=== PATIENT | male | born 1935 | race Caucasian/White ===

== ENCOUNTER 2017-04-17 12:35 | Inpatient (IN) | payer MEDICARE, OTHER ==
[~2017-04-17] VITALS: Ht 177.8 cm; Wt 63.0 kg
[2017-04-17] MEDS ORDERED: PRESERVISION AREDS 2 PO (13:14)
[2017-04-17] MEDS ORDERED: ATORVASTATIN CA40 MG PO (13:15)
[2017-04-17] MEDS ORDERED: AGGRENOX 200/251 CAP PO (13:15)
[2017-04-17] MEDS ORDERED: ASPIRIN CHEWABL81 MG PO (13:16)
[2017-04-17 13:42] LABS: HEMATOCRIT 39.3 % (39.0-50.0); HEMOGLOBIN 13.1 g/dl (14.0-18.0); IMMATURE GRANULOCYTES 0.4 % (0.0-1.0); MEAN CORPUSCULAR HGB 32.3 pG CALC (26.0-32.0); MEAN CORPUSCULAR HGB CONC 33.3 g/L CALC (32.0-36.0); NEUT# 9.03 thou/uL (1.82-7.42); RED BLOOD COUNT 4.05 mill/uL (4.70-6.10)
[2017-04-17 13:54] LABS: ALBUMIN 3.8 g/dL (3.2-5.0); ALKALINE PHOSPHATASE 120 u/l (38-126); ANION GAP 12 (6-22 (CALC)); BILIRUBIN, TOTAL 0.7 mg/dL (0.0-1.4); BUN 15 mg/dL (8-23); BUN/CREATININE RATIO 17 (12-20 (CALC)); CALCIUM 9.4 mg/dL (8.4-10.2); CARBON DIOXIDE 27 mmol/l (22-30); CHLORIDE 111 mmol/l (95-108); CREATININE 0.9 mg/dL (0.7-1.3); GFR > 60 ML/MIN (>=60 (CALC)); GFR FOR AFR.AMER. > 60 ML/MIN (>=60 (CALC)); GLUCOSE 118 mg/dL (82-115); LIPASE 102 u/l (23-300); POTASSIUM 4.3 mmol/l (3.5-5.1); SGOT/AST 21 u/l (19-48); SGPT/ALT 30 u/l (11-66); SODIUM 146 mmol/l (137-146); TOTAL PROTEIN 6.6 g/dL (6.3-8.2)
[2017-04-17 15:29] LABS: URINE BILIRUBIN - DIPSTICK NEGATIVE (NEGATIVE); URINE BLOOD DIPSTICK MODERATE (NEGATIVE); URINE COLOR YELLOW; URINE GLUCOSE - DIPSTICK NEGATIVE (NEGATIVE); URINE KETONE NEGATIVE (NEGATIVE); URINE LEUK ESTERASE NEGATIVE (NEGATIVE); URINE NITRITE - DIPSTICK NEGATIVE (Negative); URINE PH 6.5 (4.5-8.0); URINE PROTEIN - DIPSTICK NEGATIVE (NEG-TRACE); URINE SPECIFIC GRAVITY 1.015; URINE UROBILINOGEN - DIPSTICK 0.2 E.U./dL (0.2)
[2017-04-17 15:37] LABS: URINE CLARITY CLEAR
[2017-04-17 15:38] LABS: URINE SQUAMOUS EPITHELIAL CELL FEW EPI/hpf (0-FEW)
[2017-04-17 17:39] VITALS: BP 165/85
[2017-04-17 19:00] VITALS: BP 154/76
[2017-04-18] VITALS (11 sets, daily range): BP systolic 142–156; BP diastolic 54–75
[2017-04-18 06:26] LABS: HEMATOCRIT 33.7 % (39.0-50.0); HEMOGLOBIN 11.4 g/dl (14.0-18.0); IMMATURE GRANULOCYTES 0.5 % (0.0-1.0); MEAN CELL VOLUME 96.3 fL CALC (80.0-100.0); MEAN CORPUSCULAR HGB 32.6 pG CALC (26.0-32.0); MEAN CORPUSCULAR HGB CONC 33.8 g/L CALC (32.0-36.0); NEUT# 5.61 thou/uL (1.82-7.42); RED BLOOD COUNT 3.5 mill/uL (4.70-6.10); RED CELL DISTRI WIDTH 13.8 % (11.5-15.5)
[2017-04-18 06:45] LABS: ALBUMIN 3.2 g/dL (3.2-5.0); ALKALINE PHOSPHATASE 102 u/l (38-126); ANION GAP 12 (6-22 (CALC)); BILIRUBIN, TOTAL 0.6 mg/dL (0.0-1.4); BUN 11 mg/dL (8-23); BUN/CREATININE RATIO 14 (12-20 (CALC)); CALCIUM 9.2 mg/dL (8.4-10.2); CARBON DIOXIDE 28 mmol/l (22-30); CHLORIDE 111 mmol/l (95-108); CREATININE 0.8 mg/dL (0.7-1.3); GFR > 60 ML/MIN (>=60 (CALC)); GFR FOR AFR.AMER. > 60 ML/MIN (>=60 (CALC)); GLUCOSE 91 mg/dL (82-115); POTASSIUM 4.1 mmol/l (3.5-5.1); SGOT/AST 17 u/l (19-48); SGPT/ALT 22 u/l (11-66); SODIUM 147 mmol/l (137-146); TOTAL PROTEIN 5.7 g/dL (6.3-8.2)
[2017-04-19 04:45] VITALS: BP 156/82
[2017-04-19 06:23] LABS: HEMATOCRIT 32.6 % (39.0-50.0); HEMOGLOBIN 11.4 g/dl (14.0-18.0); MEAN CELL VOLUME 94.5 fL CALC (80.0-100.0); RED BLOOD COUNT 3.45 mill/uL (4.70-6.10); RED CELL DISTRI WIDTH 13.3 % (11.5-15.5)
[2017-04-19 06:49] LABS: ANION GAP 12 (6-22 (CALC)); BUN 8 mg/dL (8-23); BUN/CREATININE RATIO 12 (12-20 (CALC)); CARBON DIOXIDE 27 mmol/l (22-30); CHLORIDE 107 mmol/l (95-108); CREATININE 0.7 mg/dL (0.7-1.3); GFR > 60 ML/MIN (>=60 (CALC)); GFR FOR AFR.AMER. > 60 ML/MIN (>=60 (CALC)); GLUCOSE 86 mg/dL (82-115); MAGNESIUM 1.7 mg/dL (1.6-2.3); SODIUM 143 mmol/l (137-146)
[2017-04-19 07:42] VITALS: BP 132/64
[2017-04-19 09:14] VITALS: BP 132/64
[2017-04-19] MEDS ORDERED: LOSARTAN POT50 MG PO (12:39)
[2017-04-19] MEDS ORDERED: CEFDINIR300 MG PO (12:39)
[2017-04-19] MEDS ORDERED: TRAMADOL HCL50 MG PO (12:42)
[2017-04-19] MEDS ORDERED: TAMSULOSIN0.4 MG PO (12:42)
== END 2017-04-19 14:33 | disposition home or self-care (01) | DRG 690 ==
LOC: ED 12:35 → ED-I 15:50 → ED 16:34 → MS2 16:35
PROVIDERS: Emergency Medicine; Internal Medicine; ADMIT Internal Medicine; ATTEND Internal Medicine
PROC: 0T9B70Z Drainage of Bladder with Drainage Device, Via Natural or Artificial Opening (ICD-10-PCS; 2017-04-17)
PROC: 0T778DZ Dilation of Left Ureter with Intraluminal Device, Via Natural or Artificial Opening Endoscopic (ICD-10-PCS; principal; 2017-04-18)
PROC: BT1FYZZ Fluoroscopy of Left Kidney, Ureter and Bladder using Other Contrast (ICD-10-PCS; 2017-04-18)
DX: N13.6 Pyonephrosis (principal); N28.1 Cyst of kidney, acquired; R03.0 Elevated blood-pressure reading, without diagnosis of hypertension; F17.210 Nicotine dependence, cigarettes, uncomplicated; N20.0 Calculus of kidney; R33.8 Other retention of urine; Z79.02 Long term (current) use of antithrombotics/antiplatelets; Z79.82 Long term (current) use of aspirin; Z87.442 Personal history of urinary calculi; Z86.73 Personal history of transient ischemic attack (TIA), and cerebral infarction without residual deficits
CPT/HCPCS: G0378; J1650; Q9967

== ENCOUNTER 2017-05-04 11:56 | Day surgery (SDC) | payer MEDICARE, OTHER ==
[~2017-05-04] VITALS: Ht 177.8 cm; Wt 66.2 kg
[~2017-05-04 11:56] MED LIST: AGGRENOX 200/251 CAP PO; ASPIRIN CHEWABL81 MG PO; ATORVASTATIN CA40 MG PO; CEFDINIR300 MG PO; LOSARTAN POT50 MG PO; PRESERVISION AREDS 2 PO; TAMSULOSIN0.4 MG PO; TRAMADOL HCL50 MG PO
[2017-05-04] MEDS ORDERED: PERCOCET 5/325M1 TAB PO (15:37)
[2017-05-04 16:47] VITALS: BP 149/72
== END 2017-05-04 17:30 | disposition home or self-care (01) ==
LOC: ORM 11:56
PROVIDERS: ATTEND Urology
PROC: 0TF7XZZ Fragmentation in Left Ureter, External Approach (ICD-10-PCS; principal; 2017-05-04)
DX: N20.2 Calculus of kidney with calculus of ureter (principal); F17.210 Nicotine dependence, cigarettes, uncomplicated; Z86.73 Personal history of transient ischemic attack (TIA), and cerebral infarction without residual deficits

== ENCOUNTER 2017-05-19 06:28 | Day surgery (SDC) | payer MEDICARE, OTHER ==
[~2017-05-19] VITALS: Ht 177.8 cm; Wt 63.5 kg
[~2017-05-19 06:28] MED LIST changes: +PERCOCET 5/325M1 TAB PO
[2017-05-19] MEDS ORDERED: PERCOCET 5/325M1 TAB PO (09:50)
[2017-05-19] MEDS ORDERED: ASPIRIN81 MG PO (10:02)
[2017-05-19] MEDS ORDERED: AGGRENOX 200/251 CAP PO (10:03)
[2017-05-19 11:32] VITALS: BP 136/74
== END 2017-05-19 10:55 | disposition home or self-care (01) ==
LOC: ORM 06:28
PROVIDERS: ATTEND Urology
PROC: 0TF3XZZ Fragmentation in Right Kidney Pelvis, External Approach (ICD-10-PCS; principal; 2017-05-19)
DX: N20.0 Calculus of kidney (principal); Z87.442 Personal history of urinary calculi; Z96.0 Presence of urogenital implants; Z79.01 Long term (current) use of anticoagulants; Z79.899 Other long term (current) drug therapy
CPT/HCPCS: Q9967